=== PATIENT | male | born 1945 | race Caucasian/White ===

== ENCOUNTER 2021-05-22 11:05 | Inpatient (IN) ==
[2021-05-22] MEDS ORDERED: *HR* Propofol 200 MG/20 ML VIAL IVP ONE (11:33)
[2021-05-22] MEDS ORDERED: Lidocaine HCL 4 ML Topical Solution (Laryng-O-Jet Kit Sterile Pak) TP ONE (11:37)
[2021-05-22] MEDS ORDERED: Acetaminophen IV 1,000 MG/100 ML BAG IVPB ONE (11:37)
[2021-05-22] MEDS ORDERED: Ondansetron 4 MG/2 ML VIAL ONE (11:37)
[2021-05-22] MEDS ORDERED: Famotidine 20 MG/2 ML VIAL IVP ONE (11:37)
[2021-05-22] MEDS ORDERED: *HR* Rocuronium Bromide 50 MG/5 ML VIAL ONE (11:37)
[2021-05-22] MEDS ORDERED: Lidocaine -MPF 2% 5 ML VIAL ONE (11:37)
[2021-05-22] MEDS ORDERED: *HR* EPINEPHrine 30 MG/30 ML MDV ONE (11:38)
[2021-05-22] MEDS ORDERED: Polymyxin B Sulfate 500,000 UNIT, Sodium Chloride IRRigation 1,000 ML IR ONE (12:00)
[2021-05-22] MEDS ORDERED: *HR* HYDROmorphone PF 0.5 MG/0.5 ML SYRINGE IVP PRN (12:09)
[2021-05-22] MEDS ORDERED: Ondansetron 4 MG/2 ML VIAL IVP PRN ×2 (12:09→16:37)
[2021-05-22] MEDS ORDERED: CeFAZolin Syr 2,000MG/20 ML 2,000 MG/20 ML SYRINGE IVPB ONE (12:16)
[2021-05-22] MEDS ORDERED: Ringers Solution, Lactated 1,000 ML IVC SCH ×2 (12:30→16:37)
[2021-05-22] MEDS ORDERED: *HR* FentaNYL (PF) 100 MCG/2 ML VIAL ONE (12:52)
[2021-05-22] MEDS ORDERED: Bupivacaine/EPI 1:200k 0.25% 50 ML VIAL ONE (13:28)
[2021-05-22] MEDS ORDERED: Sugammadex Sodium 200 MG/2 ML VIAL IV ONE (13:30)
[2021-05-22] MEDS ORDERED: *HR* Magnesium Sulfate 1 GM/2 ML VIAL ONE (13:53)
[2021-05-22] MEDS ORDERED: *HR* HYDROMORPHONE 2 MG/ML VIAL ONE (13:56)
[2021-05-22] MEDS ORDERED: EPHEDrine 50 MG/ML VIAL ONE (14:04)
[2021-05-22] MEDS ORDERED: Acetaminophen 325 MG TABLET PO PRN (16:37)
[2021-05-22] MEDS ORDERED: Sennosides 8.6 MG TABLET PO PRN (16:37)
[2021-05-22] MEDS ORDERED: Naloxone 0.4 MG/ML INJ IVP PRN (16:37)
[2021-05-22] MEDS: *HR* Metformin 500 MG TABLET PO SCH (17:12)
[2021-05-22] MEDS: *HR* HYDROcodone/Acet 5/325 mg TABLET PO PRN (20:02)
[2021-05-22] MEDS: CeFAZolin 2 GM/120 ML BAG IVPB SCH (20:02)
[2021-05-23] MEDS: CeFAZolin 2 GM/120 ML BAG IVPB SCH (04:50)
[2021-05-23] MEDS: *HR* OxyCODONE Immed Rel 5 MG TABLET PO PRN ×2 (10:10→16:56)
[2021-05-23] MEDS: hydroCHLOROthiazide 25 MG TABLET PO SCH (10:10)
[2021-05-23] MEDS: lisinopriL 20 MG TABLET PO SCH (10:11)
[2021-05-23] MEDS: amLODIPine 5 MG TABLET PO SCH (10:11)
[2021-05-23] MEDS: *HR* HYDROcodone/Acet 5/325 mg TABLET PO PRN ×2 (14:04→20:58)
[2021-05-23] MEDS: *HR* Metformin 500 MG TABLET PO SCH ×2 (14:54→16:57)
[2021-05-24] MEDS: *HR* OxyCODONE Immed Rel 5 MG TABLET PO PRN ×3 (04:05→19:31)
[2021-05-24] MEDS: hydroCHLOROthiazide 25 MG TABLET PO SCH (07:59)
[2021-05-24] MEDS: lisinopriL 20 MG TABLET PO SCH (07:59)
[2021-05-24] MEDS: *HR* Metformin 500 MG TABLET PO SCH ×2 (07:59→17:33)
[2021-05-24] MEDS: amLODIPine 5 MG TABLET PO SCH (08:00)
[2021-05-24] MEDS: *HR* HYDROcodone/Acet 5/325 mg TABLET PO PRN ×2 (08:06→17:33)
[2021-05-25] MEDS: *HR* HYDROcodone/Acet 5/325 mg TABLET PO PRN ×3 (01:00→16:37)
[2021-05-25] MEDS: amLODIPine 5 MG TABLET PO SCH (08:14)
[2021-05-25] MEDS: hydroCHLOROthiazide 25 MG TABLET PO SCH (08:14)
[2021-05-25] MEDS: lisinopriL 20 MG TABLET PO SCH (08:14)
[2021-05-25] MEDS: *HR* Metformin 500 MG TABLET PO SCH ×2 (08:14→16:37)
[2021-05-25] MEDS: *HR* OxyCODONE Immed Rel 5 MG TABLET PO PRN ×2 (11:24→21:54)
[2021-05-25] MEDS ORDERED: methocarbamoL 750 MG TABLET PO PRN (17:14)
[2021-05-25 19:12] LABS: White Blood Count 10.6 K/mcL (4.3-11.1)
[2021-05-25 19:13] LABS: Basophils % 0.1 %; Eosinophils % 0.4 %; Hematocrit 32.3 % (37.5-50.1); Hemoglobin 10.9 g/dL (12.9-16.9); Immature Granulocytes % 0.5 % (0-4); Lymphocytes # 1.6 K/mcL (0.6-4.6); Lymphocytes % 14.8 %; Mean Corpuscular HGB Conc 33.7 g/dL (31.6-35.5); Mean Corpuscular Hemoglobin 32.2 pg (28.0-33.3); Mean Corpuscular Volume 95.6 fL (83.0-100.0); Mean Platelet Volume 9.3 fL (9.4-12.4); Monocytes # 1.5 K/mcL (0.0-1.3); Monocytes % 13.8 %; Neutrophils # 7.4 K/mcL (1.6-8.9); Platelet Count 195 K/mcL (140-400); Red Blood Count 3.38 M/mcL (4.19-5.50); Red Cell Distribution Width 11.9 % (11.5-14.5); Segmented Neutrophils % 70.4 %
[2021-05-26] MEDS: hydroCHLOROthiazide 25 MG TABLET PO SCH (08:51)
[2021-05-26] MEDS: *HR* Metformin 500 MG TABLET PO SCH ×2 (08:52→16:46)
[2021-05-26] MEDS: amLODIPine 5 MG TABLET PO SCH (08:52)
[2021-05-26] MEDS: lisinopriL 20 MG TABLET PO SCH (08:52)
[2021-05-26 11:51] VITALS: BP 123/60; PULSE 85; TEMP 98.7; O2SAT 96
[2021-05-26 12:14] LABS: Bilirubin,Urine Negative (Negative); Blood,Urine Negative (Negative); Clarity,Urine Clear (Clear); Color,Urine Yellow (Yellow); Glucose,Urine (UA) Normal (Normal); Ketones,Urine Negative (Negative); Leukocyte Esterase,Urine Negative (Negative); Nitrite,Urine Negative (Negative); PH,Urine 5.5 pH Units (5.0-8.0); Protein,Urine Trace mg/dL (Neg-Trace); Urobilinogen,Urine Normal (Normal)
== END 2021-05-26 17:02 | disposition home health service (06) | DRG 520 ==
LOC: SDCAOSI 11:05 → 4WAOSI 16:37
PROVIDERS: ADMIT Student in an Organized Health Care Education/Training Program; ATTEND Student in an Organized Health Care Education/Training Program

== ENCOUNTER 2021-06-12 22:12 | Observation (INO) ==
[2021-06-12] MEDS ORDERED: Isovue-370 500 ML BOTTLE IVP ONE (23:09)
[2021-06-12 23:19] LABS: Basophils # 0.1 K/mcL (0.0-0.2); Basophils % 0.6 %; Eosinophils # 0.2 K/mcL (0.0-0.6); Hematocrit 35.3 % (37.5-50.1); Hemoglobin 11.8 g/dL (12.9-16.9); Immature Granulocytes % 0.3 % (0-4); Lymphocytes # 2.3 K/mcL (0.6-4.6); Lymphocytes % 21.6 %; Mean Corpuscular HGB Conc 33.4 g/dL (31.6-35.5); Mean Corpuscular Hemoglobin 31.6 pg (28.0-33.3); Mean Corpuscular Volume 94.4 fL (83.0-100.0); Mean Platelet Volume 8.8 fL (9.4-12.4); Monocytes # 1.3 K/mcL (0.0-1.3); Neutrophils # 6.7 K/mcL (1.6-8.9); Platelet Count 307 K/mcL (140-400); Red Blood Count 3.74 M/mcL (4.19-5.50); Red Cell Distribution Width 11.9 % (11.5-14.5); Segmented Neutrophils % 63.5 %; White Blood Count 10.5 K/mcL (4.3-11.1)
[2021-06-12 23:37] LABS: BUN/Creatinine Ratio 23 (6-26); Blood Urea Nitrogen 23 mg/dL (8-23); Calcium 8.6 mg/dL (8.6-10.3); Carbon Dioxide 24 mEq/L (23-29); Chloride 100 mEq/L (98-107); Glucose 114 mg/dL (70-105); Osmolality,Calculated 281 (280-300); Sodium 133 mEq/L (136-145); eGFR For African Americans > 60 (> 60); eGFR For Non-African Americans > 60 (> 60)
[2021-06-12 23:59] LABS: C-Reactive Protein 46 mg/L (Less than 10)
[2021-06-13] MEDS ORDERED: 0.9 % Sodium Chloride 1,000 ML IVC ONE (01:40)
[2021-06-13] MEDS ORDERED: *HR* OxyCODONE Immed Rel 5 MG TABLET PO PRN (01:46)
[2021-06-13] MEDS ORDERED: Ondansetron 4 MG/2 ML VIAL IVP PRN (01:46)
[2021-06-13] MEDS ORDERED: *HR* Promethazine 25 MG/ML VIAL IM PRN (01:46)
[2021-06-13] MEDS ORDERED: Melatonin 3 MG TABLET PO PRN (01:46)
[2021-06-13] MEDS ORDERED: Naloxone 0.4 MG/ML INJ IVP PRN (01:46)
[2021-06-13] MEDS ORDERED: *HR* Dextrose 50 % in Water (Syg) 50 ML SYRINGE IVP PRN (01:49)
[2021-06-13] MEDS ORDERED: Dextrose Gel 15 GM/37.5 ML TUBE PO PRN ×2 (01:49)
[2021-06-13] MEDS ORDERED: D5% in Water 1,000 ML IVC PRN (01:49)
[2021-06-13] MEDS ORDERED: Vancomycin 1,500 MG/265 ML IV.SOLN IVPB ONE (02:00)
[2021-06-13 02:46] LABS: Adenovirus Not Detected (Not Detect); Bordetella Pertussis Not Detected (Not Detect); Chlamydophila pneumoniae Not Detected (Not Detect); Coronavirus 229E Not Detected (Not Detect); Coronavirus HKU1 Not Detected (Not Detect); Coronavirus NL63 Not Detected (Not Detect); Coronavirus OC43 Not Detected (Not Detect); Human Metapneumovirus Not Detected (Not Detect); Human Rhinovirus/Enterovirus Not Detected (Not Detect); Influenza A Subtype 2009 H1 Not Detected (Not Detect); Influenza B Not Detected (Not Detect); Mycoplasma pneumoniae Not Detected (Not Detect); Parainfluenza Virus 1 Not Detected (Not Detect); Parainfluenza Virus 2 Not Detected (Not Detect); Parainfluenza Virus 3 Not Detected (Not Detect); Parainfluenza Virus 4 Not Detected (Not Detect); Respiratory Syncytial Virus Not Detected (Not Detect); SARS-CoV-2 Not Detected (Not Detect)
[2021-06-13 05:19] LABS: Basophils # 0.1 K/mcL (0.0-0.2); Basophils % 0.5 %; Eosinophils # 0.2 K/mcL (0.0-0.6); Eosinophils % 1.6 %; Hematocrit 36.1 % (37.5-50.1); Hemoglobin 11.6 g/dL (12.9-16.9); INR 1.1; Immature Granulocytes % 0.5 % (0-4); Lymphocytes # 1.8 K/mcL (0.6-4.6); Mean Corpuscular HGB Conc 32.1 g/dL (31.6-35.5); Mean Corpuscular Hemoglobin 31.6 pg (28.0-33.3); Mean Corpuscular Volume 98.4 fL (83.0-100.0); Mean Platelet Volume 9.2 fL (9.4-12.4); Monocytes # 1.2 K/mcL (0.0-1.3); Monocytes % 11.3 %; Neutrophils # 7.4 K/mcL (1.6-8.9); Platelet Count 290 K/mcL (140-400); Prothrombin Time 12.4 Seconds (9.4-12.1); Red Blood Count 3.67 M/mcL (4.19-5.50); Red Cell Distribution Width 11.9 % (11.5-14.5); Segmented Neutrophils % 69.1 %; White Blood Count 10.6 K/mcL (4.3-11.1)
[2021-06-13 05:30] LABS: BUN/Creatinine Ratio 21 (6-26); Blood Urea Nitrogen 22 mg/dL (8-23); Calcium 8.6 mg/dL (8.6-10.3); Carbon Dioxide 26 mEq/L (23-29); Chloride 99 mEq/L (98-107); Glucose 124 mg/dL (70-105); Magnesium 1.7 mg/dL (1.6-2.6); Osmolality,Calculated 281 (280-300); Potassium 3.6 mEq/L (3.5-5.1); Sodium 133 mEq/L (136-145); eGFR For African Americans > 60 (> 60); eGFR For Non-African Americans > 60 (> 60)
[2021-06-13] MEDS: *HR* HYDROcodone/Acet 5/325 mg TABLET PO PRN (08:48)
[2021-06-13] MEDS: Aspirin 81 MG TAB.CHEW PO SCH (08:49)
[2021-06-13] MEDS: cefTRIAXone 1,000 MG in Water for inj. (sterile) 10 ML IVP SCH (08:49)
[2021-06-13] MEDS: Insulin LISPRO 300 UNITS/3 ML VIAL SUBQ SCH ×4 (08:57→20:25)
[2021-06-13] MEDS: *HR* Heparin 5,000 UNIT/ML VIAL SQ SCH (17:00)
[2021-06-13] MEDS: Acetaminophen 325 MG TABLET PO PRN (20:24)
[2021-06-14 03:57] LABS: Hematocrit 33.4 % (37.5-50.1); Hemoglobin 11.2 g/dL (12.9-16.9); Mean Corpuscular HGB Conc 33.5 g/dL (31.6-35.5); Mean Corpuscular Hemoglobin 32.3 pg (28.0-33.3); Mean Corpuscular Volume 96.3 fL (83.0-100.0); Mean Platelet Volume 9.1 fL (9.4-12.4); Platelet Count 262 K/mcL (140-400); Red Blood Count 3.47 M/mcL (4.19-5.50); Red Cell Distribution Width 11.8 % (11.5-14.5); White Blood Count 10.3 K/mcL (4.3-11.1)
[2021-06-14 04:02] LABS: BUN/Creatinine Ratio 22 (6-26); Blood Urea Nitrogen 21 mg/dL (8-23); C-Reactive Protein 68 mg/L (Less than 10); Calcium 8.4 mg/dL (8.6-10.3); Carbon Dioxide 25 mEq/L (23-29); Chloride 102 mEq/L (98-107); Glucose 121 mg/dL (70-105); Osmolality,Calculated 280 (280-300); Potassium 4.1 mEq/L (3.5-5.1); Sodium 133 mEq/L (136-145); eGFR For African Americans > 60 (> 60); eGFR For Non-African Americans > 60 (> 60)
[2021-06-14] MEDS: Vancomycin 1,500 MG/265 ML IV.SOLN IVPB SCH (06:19)
[2021-06-14] MEDS: *HR* Heparin 5,000 UNIT/ML VIAL SQ SCH ×2 (06:20→17:33)
[2021-06-14] MEDS: *HR* HYDROcodone/Acet 5/325 mg TABLET PO PRN (06:28)
[2021-06-14] MEDS: amLODIPine 5 MG TABLET PO SCH (09:04)
[2021-06-14] MEDS: hydroCHLOROthiazide 25 MG TABLET PO SCH (09:05)
[2021-06-14] MEDS: Aspirin 81 MG TAB.CHEW PO SCH (09:05)
[2021-06-14] MEDS: lisinopriL 20 MG TABLET PO SCH (09:06)
[2021-06-14] MEDS: cefTRIAXone 1,000 MG in Water for inj. (sterile) 10 ML IVP SCH (09:06)
[2021-06-14] MEDS: Insulin LISPRO 300 UNITS/3 ML VIAL SUBQ SCH ×3 (09:07→16:33)
[2021-06-14] MEDS: Acetaminophen 325 MG TABLET PO PRN (17:40)
[2021-06-15] MEDS: Insulin LISPRO 300 UNITS/3 ML VIAL SUBQ SCH ×5 (00:14→20:45)
[2021-06-15] MEDS: Vancomycin 1,500 MG/265 ML IV.SOLN IVPB SCH (05:01)
[2021-06-15] MEDS: *HR* Heparin 5,000 UNIT/ML VIAL SQ SCH ×2 (06:27→18:11)
[2021-06-15] MEDS: lisinopriL 20 MG TABLET PO SCH (07:58)
[2021-06-15] MEDS: cefTRIAXone 1,000 MG in Water for inj. (sterile) 10 ML IVP SCH (07:58)
[2021-06-15] MEDS: amLODIPine 5 MG TABLET PO SCH (07:59)
[2021-06-15] MEDS: hydroCHLOROthiazide 25 MG TABLET PO SCH (07:59)
[2021-06-15] MEDS: Aspirin 81 MG TAB.CHEW PO SCH (08:01)
[2021-06-15] MEDS: Acetaminophen 325 MG TABLET PO PRN ×2 (08:01→20:51)
[2021-06-16 03:45] VITALS: PULSE 58
[2021-06-16] MEDS: *HR* Heparin 5,000 UNIT/ML VIAL SQ SCH (05:52)
[2021-06-16 06:41] VITALS: BP 133/71; TEMP 98.6; O2SAT 99
[2021-06-16 06:59] LABS: BUN/Creatinine Ratio 20 (6-26); Blood Urea Nitrogen 22 mg/dL (8-23); Calcium 8.8 mg/dL (8.6-10.3); Carbon Dioxide 24 mEq/L (23-29); Chloride 103 mEq/L (98-107); Glucose 114 mg/dL (70-105); Osmolality,Calculated 288 (280-300); Potassium 4.1 mEq/L (3.5-5.1); Sodium 137 mEq/L (136-145); eGFR For African Americans > 60 (> 60); eGFR For Non-African Americans > 60 (> 60)
[2021-06-16] MEDS: Aspirin 81 MG TAB.CHEW PO SCH (07:55)
[2021-06-16] MEDS: lisinopriL 20 MG TABLET PO SCH (07:55)
[2021-06-16] MEDS: amLODIPine 5 MG TABLET PO SCH (07:55)
[2021-06-16] MEDS: cefTRIAXone 1,000 MG in Water for inj. (sterile) 10 ML IVP SCH (07:55)
[2021-06-16] MEDS: Insulin LISPRO 300 UNITS/3 ML VIAL SUBQ SCH (07:56)
[2021-06-16] MEDS: hydroCHLOROthiazide 25 MG TABLET PO SCH (07:56)
== END 2021-06-16 14:12 | disposition home or self-care (01) ==
LOC: 3ANU 22:12 → EMEROOARM 22:12 → SUATTDRO 06-13 02:50 → 3ANU 06-13 03:33
PROVIDERS: ADMIT Internal Medicine; ATTEND Internal Medicine